=== PATIENT | female | born 1985 | race African-American/Black ===

== ENCOUNTER 2017-03-19 16:02 | Emergency (ER) | payer OTHER ==
[2017-03-19 16:09] VITALS: BP 106/94; PULSE 94; TEMP 99; BMI 43.9
--- NOTE | 2017-03-19 17:00 | PDOC ---
History of Present Illness - General Chief Complaint: Injury Stated Complaint: RT ANKLE INJURY Time Seen by Provider: 03/19/17 16:10 History Source: Patient Exam Limitations: No Limitations - History of Present Illness Initial Comments: 03/19/17 16:59 CHIEF COMPLAINT: Inversion injury right ankle HISTORY OF PRESENT ILLNESS: Patient is a 31-year-old female, states she was walking, fell into a pothole, and sustained an inversion injury to right ankle now with lateral ankle edema. Patient able to ambulate with a limp, denies any further injury. Occurred: reports: just prior to arrival Severity: Yes: moderate Lower Extremity Pain Location: right: ankle Method of Injury: Yes: twisted Lower Ext. Injury Location - Specific Injury Location Ankle: right pain, right swelling Past History - Past Medical History Allergies/Adverse Reactions: Allergies Allergy/AdvReac Type Severity Reaction Status Date / Time No Known Allergies Allergy Verified 03/19/17 16:09 Home Medications: Ambulatory Orders Oxycodone HCl/Acetaminophen [Percocet 5-325 mg Tablet] 1 tab PO Q6H #12 tablet MDD 4 03/19/17 Other medical history: NONE - Psycho/Social/Smoking Cessation Hx Anxiety: No Suicidal Ideation: No Smoking Status: Yes Smoking History: Current every day smoker Number of Cigarettes Smoked Daily: 6 Information on smoking cessation initiated: Yes 'Breaking Loose' booklet given: 03/19/17 Hx Alcohol Use: Yes (SOCIAL) Drug/Substance Use Hx: No Substance Use Type: None Review of Systems - Review of Systems Constitutional: No: Symptoms Reported Respiratory: No: Symptoms reported Musculoskeletal: Yes: Joint Pain, Joint Swelling Integumentary: No: Symptoms Reported, Bruising, Erythema Neurological: No: Paresthesia, Tingling, Tremors, Weakness All Other Systems: Reviewed and Negative *Physical Exam - Vital Signs Last Vital Signs Temp Pulse Resp BP Pulse Ox 99.0 F 94 H 20 106/94 100 03/19/17 16:06 03/19/17 16:06 03/19/17 16:06 03/19/17 16:06 03/19/17 16:06 - Physical Exam General Appearance: Yes: Appropriately Dressed. No: Apparent Distress Neck: negative: Tender, Tender lateral, Tender midline Respiratory/Chest: positive: Lungs Clear, Normal Breath Sounds. negative: Respiratory Distress, Accessory Muscle Use Cardiovascular: positive: Regular Rhythm Extremity: positive: Normal Capillary Refill, Tender, Pelvis Stable, Pedal Edema , Swelling, Inflammation. negative: Delayed Capillary Refill, Calf Tenderness, Erythema Integumentary: positive: Normal Color, Dry, Swelling. negative: Erythema, Ecchymosis, Bruising Neurologic: positive: Alert, Normal Mood/Affect ED Treatment Course - ADDITIONAL ORDERS Additional order review: Laboratory Results 03/19/17 16:16 Urine HCG, Qual Negative - RADIOLOGY Radiology Studies Ordered: Category Date Time Status ANKLE & FOOT-RIGHT* [RAD] Stat Radiology 03/19/17 16:10 Taken Medical Decision Making - Medical Decision Making 03/19/17 17:23 A/P: Inversion injury to right ankle patient sent to x-ray to rule out acute fracture. 03/19/17 18:05 Wet Read: Negative for acute fracture and dislocation. Bronson wrap and air cast placed on. Crutches, pt unable to bear weight because of pain. *DC/Admit/Observation/Transfer Diagnosis at time of Disposition: Ankle sprain Qualifiers: Encounter type: initial encounter Involved ligament of ankle: tibiofibular ligament Laterality: right Qualified Code(s): S93.431A - Sprain of tibiofibular ligament of right ankle, initial encounter - Discharge Dispostion Disposition: HOME Condition at time of disposition: Good Admit: No - Prescriptions Prescriptions: Oxycodone HCl/Acetaminophen [Percocet 5-325 mg Tablet] 1 tab PO Q6H #12 tablet MDD 4 - Referrals Referrals: Lebron Metz MD [Staff Physician] - - Patient Instructions Printed Discharge Instructions: DI for Ankle Sprain Additional Instructions: 1. Please return to the emergency department with any redness, swelling, increased pain, or any other concerns. 2. Keep splint on. 3. Please follow up in the office of Dr. Metz within a week if pain persists. 4. No weightbearing 5. Ice and elevate when at rest. 6. Motrin for minor pain - Post Discharge Activity Work/School Note: Back to Work
[2017-03-19] MEDS ORDERED: OXYCODONE/APAP 5/325MG COMBO TABLET PO ONE (17:04)
[2017-03-19] MEDS ORDERED: OXYCODONE/APAP 5/325MG COMBO TABLET ONE (17:08)
== END 2017-03-19 18:44 | disposition home or self-care (01) ==
LOC: JERFT 16:02
DX: S93.431A Sprain of tibiofibular ligament of right ankle, initial encounter (principal); W17.2XXA Fall into hole, initial encounter; Y93.01 Activity, walking, marching and hiking; Y92.89 Other specified places as the place of occurrence of the external cause
CPT/HCPCS: 73610-TC-RT; 73630-TC-RT; 84703; 99281-25